=== PATIENT | male | born 1955 | race Caucasian/White ===

== ENCOUNTER 2017-06-20 08:30 | Inpatient (IN) | payer OTHER ==
[~2017-06-20] VITALS: Ht 180.3 cm; Wt 90.7 kg
[~2017-06-20 08:30] MED LIST: DUI500 PO; PERCOCET 5-3251 EACH PO; XARELTO10 MG PO; ZOCOR5 MG PO
[2017-06-20] MEDS ORDERED: VITAMIN D10000 UNIT PO (09:16)
[2017-06-28] MEDS ORDERED: PERCOCET 5-3251 EACH PO (18:46)
[2017-06-28] MEDS ORDERED: XARELTO10 MG PO (18:46)
[2017-06-28] MEDS ORDERED: CEFADROXIL500 MG PO (18:46)
== END 2017-06-28 19:13 | disposition home or self-care (01) | DRG 470 ==
LOC: O/R 06-26 05:40 → SURH 06-26 08:30
PROVIDERS: Orthopaedic Surgery
PROC: 0MNP0ZZ Release Left Knee Bursa and Ligament, Open Approach (ICD-10-PCS; 2017-06-26)
PROC: 0SRD0J9 Replacement of Left Knee Joint with Synthetic Substitute, Cemented, Open Approach (ICD-10-PCS; principal; 2017-06-26 09:45)
DX: M17.12 Unilateral primary osteoarthritis, left knee (principal); D62 Acute posthemorrhagic anemia; M81.0 Age-related osteoporosis without current pathological fracture; E78.00 Pure hypercholesterolemia, unspecified

== ENCOUNTER 2020-07-15 05:45 | Day surgery (SDC) | payer OTHER ==
[~2020-07-15 05:45] MED LIST changes: +CEFADROXIL500 MG PO; +VITAMIN D10000 UNIT PO
[2020-07-15] MEDS ORDERED: PERCOCET 5-3251 EACH PO (13:32)
[2020-07-15] MEDS ORDERED: DUI500 PO (13:32)
== END 2020-07-16 15:25 | disposition home or self-care (01) ==
LOC: CIR.AMB 05:45
PROVIDERS: ATTEND Orthopaedic Surgery
DX: M75.122 Complete rotator cuff tear or rupture of left shoulder, not specified as traumatic (principal); M65.812 Other synovitis and tenosynovitis, left shoulder; Z20.822 Contact with and (suspected) exposure to COVID-19